=== PATIENT | male | born 1975 | race Caucasian/White ===

== ENCOUNTER → 2017-06-30 | Outpatient (CLI) | payer BC ==
--- NOTE | ~2017-06-30 | ECHO ---
Transthoracic Echocardiography Report (TTE) Demographics Patient Name GELY FREITAS Date of Study 06/30/2017 Patient Number [id number] Visit Number [id number] Date of 1975 Room Number Accession Number [id number] Gender Male Age 42 year(s) Referring David Nicolas Plater Production Grace Nieves [facility], Physician Shayne Corona RVT Physician Interpreting Sunshine Rendon Scallop Raker Physician A Supervising Ordering Physician Shayne Corona MD/MLP Nurse Stress [employer] Hand Conclusions Summary The estimated left ventricular ejection fraction is 60-65%. Diastolic assessment reveals normal relaxation. The left atrium is mildly dilated by LA volume index measurement. Procedure Type of Study TTE procedure:2D Echocardiogram. Procedure Date Date: 06/30/2017 Start: 12:57 PM Study Location: Echo Lab Technical Quality: Good visualization Indications:Dyspnea/SOB. Appropriate Use Criteria: 9 Patient Status: Routine Rhythm: Within normal limits HR: 65 bpm BP: 115/67 mmHg M-Mode/2D Measurements LV Diastolic Dimension: 4.95 cm LV Systolic Dimension: 2.5 cm LV Septum Diastolic: 0.86 cm LV Septum Systolic: 2.9 cm LV PW Diastolic: 0.85 cm AO Root Dimension: 3.1 cm Cardiac Output: 4.5 l/min LA Dimension: 4.2 cm LVOT: 2.1 cm IVC Inspiration: 1.38 cm LVOT VTI: 20 cm RV Base: 3.22 cm LV Stroke volume: 69.24 ml RV Length: 5.11 cm TAPSE: 2.33 cm TDI-S': 18 cm/s Doppler Measurements AV Peak Velocity: 1.17 m/s MV Peak E-Wave: 0.77 m/s AV Peak Gradient: 5.48 mmHg MV Peak A-Wave: 0.5 m/s AV Mean Gradient: 3 mmHg MV E/A Ratio: 1.54 LVOT Peak Velocity: 0.89 m/s MV P1/2t: 45 msec TR Gradient:18.84 mmHg PV Peak Velocity: 0.96 m/s Estimated RAP:3 mmHg PV Peak Gradient: 3.69 mmHg Estimated RVSP: 22 mmHg Estimated PASP: 21.84 mmHg E' Septal Velocity: 0.08 m/s A' Septal Velocity: 0.1 m/s E' Lateral Velocity: 0.12 m/s A' Lateral Velocity: 0.08 m/s MV E/E' Ratio: 6 Findings Left Ventricle The estimated left ventricular ejection fraction is 60-65%. Diastolic assessment reveals normal relaxation. Right Ventricle Normal right ventricle structure and function. Left Atrium The left atrium is mildly dilated by LA volume index measurement. Right Atrium Normal right atrial size. Mitral Valve Trivial mitral regurgitation by color Doppler. Aortic Valve Grossly normal aortic structure and function. Tricuspid Valve Trivial tricuspid regurgitation by color Doppler. Pulmonic Valve No pulmonic valve regurgitation by color Doppler. Pericardial Effusion No evidence of pericardial effusion. Miscellaneous Visualized portions of the aortic root and ascending aorta appear normal in size. Pleural Effusion No evidence of pleural effusion. Signature dtt: Steffen Gonsalez dtd: 06/30/17 [facility] Physician Self Edit
--- NOTE | ~2017-06-30 | PUL ---
PATIENT'S NAME: GELY FREITAS [facility] AGE: 42 Y [address] ROOM: [place] [address] LOCATION: [facility] ADMIT DATE: 06/30/2017 Pulmonary DISCHARGE DATE: FAMILY PHYSICIAN: YURY VALDEZ PA-C ATTENDING PHYSICIAN: JUAREZ PEREZ NAME OF PROCEDURE: Pulmonary Function Test DATE OF PROCEDURE: June 30, 2017 TECH: DARON Parson REASON FOR EXAM: Cough PROCEDURE PERFORMED: Spirometry with bronchodilator assessment. Measurement of maximum voluntary ventilation. Measurement of diffusing capacity. Measurement of lung volumes. Methacholine challenge. RESULTS: FVC was 3.94 L, 82% of predicted; FEV1 was 3.14 liters, 82% of predicted. FEV1/FVC was 80%. The post bronchodilator FVC was 4.07 L, 85% of predicted; post bronchodilator FEV1 was 3.24 L, 85% of predicted. Maximum voluntary ventilation was 136 L/minute, 88% of predicted. The above data did not change significantly following administration of bronchodilator. Diffusing capacity not adjusted for hemoglobin was 89%. The single breath alveolar volume was 5.07 L which is a marginal estimate of the total lung capacity. Lung volume measurements showed total lung capacity was 5.47 L, 88% of predicted. Functional residual capacity was 2.63 liters, 86% of predicted. Residual volume was 1.51 liters, 83% of predicted. The flow volume loop pattern was normal. Methacholine challenge test was negative. Drop of FEV1 of 10% in the 5th level of methacholine challenge test was noted. PHYSICIAN INTERPRETATION: There was no evidence of airflow obstruction, and no significant bronchodilator response. Lung volumes are normal, diffusing capacity is normal. Methacholine challenge test was negative. MD ALBINO MALIK/bianca PATIENT'S NAME: GELY FREITAS [facility] AGE: 42 Y [address] ROOM: [place] [address] LOCATION: [facility] ADMIT DATE: 06/30/2017 Pulmonary DISCHARGE DATE: FAMILY PHYSICIAN: YURY VALDZE PA-C ATTENDING PHYSICIAN: JUAREZ PEREZ /[id number] dtt: 07/03/17 1100 ANA MEENAKSHI dtd: 07/01/17 1331
== END | disposition disaster alternative care site (69) ==
LOC: GRTH 10:30
DX: R05 Cough (principal); I51.7 Cardiomegaly; K76.0 Fatty (change of) liver, not elsewhere classified; R06.02 Shortness of breath
CPT/HCPCS: J7674